=== PATIENT | female | born 2000 | race Hispanic/Latino ===

== ENCOUNTER 2020-11-08 15:37 | Emergency (ER) | payer OTHER | END 2020-11-08 15:59 | disposition home or self-care (01) | LOC: BURERS 15:37 | DX: O9A.213 Injury, poisoning and certain other consequences of external causes complicating pregnancy, third trimester (principal); S46.312A Strain of muscle, fascia and tendon of triceps, left arm, initial encounter; Z3A.31 31 weeks gestation of pregnancy; W01.0XXA Fall on same level from slipping, tripping and stumbling without subsequent striking against object, initial encounter ==